=== PATIENT | female | born 1990 | race Caucasian/White ===

== ENCOUNTER 2025-08-06 19:21 | Emergency (ER) | payer OTHER, SELFPAY ==
[2025-08-06 19:28] VITALS: BP 134/97; PULSE 78; TEMP 36.9; O2SAT 98; BMI 27.4
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
--- NOTE | 2025-08-06 19:34 | PC.NURSE ---
Laceration above right eye, no bleeding at this time, eye swollen and bruised. Ice pack given.
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
--- OUTSIDE RECORDS SUMMARY | 2025-08-06 20:21 | XMS_ITS | Clinical Summary ---
Author Organization [facility] [employer] [facility] tem Address [id number] [address] [place] [address] Care Team Providers Care Designer And Patternmaker Name Role Phone Paulino Liang Primary Care Provider Allergies Active AllergyReactionsCriticalityNoted LqfcEwzrimtqKkfknmiruoa68/27/2020 Medications No known medications Active Problems ProblemNoted DateDiagnosed DateAttention deficit hyperactivity disorder (ADHD), predominantly hyperactive type09/26/2022Somatic dysfunction of thoracic region 09/26/2022 Encounters DateTypeDepartmentCare MqwzTdeddquqiav03/28/2025 7:54 PM EDT - 06/15/2025 8:14 PM EDTEmergency [facility] [address] [place] [address] Bert Zaragoza MD Acute otitis media, unspecified otitis media type (Primary Dx) Discharge Disposition: Home06/15/2025Travelfrom Last 3 Months Family History Medical HistoryRelationNameCommentsAutismBrotherNo Known ProblemsFatherNo Known ProblemsMotherRelationNameStatusCommentsBrotherAliveFatherAliveMotherAlive Social History Tobacco UseTypesPacks/DayYears UsedDateSmoking Tobacco: NeverSmokeless Tobacco: Never Tobacco Cessation:Counseling Given: Not Answered Alcohol UseStandard Drinks/WeekCommentsNot Currently0 (1 standard drink = 0.6 oz pure alcohol)RARELYPHQ-2AnswerDate RecordedTotal Dyhbs5904ChildcareAnswer Date XcurncgrUgoqxapjnRqodqjv47/10/2019EmploymentAnswerDate RecordedEmployment Finiafu7801/26/2019Hunger ScreeningAnswerDate RecordedWithin the past 12 months we worried whether our food would run out before we got money to buy more.Never True06/15/2025Within the past 12 months the food we bought just didn't last and we didn't have money to get more.Never True06/15/2025Purpose - LifeAnswerDate RecordedPurpose and direction in nylbSwgygbn14/17/2021CommentsNoSex and Gender InformationValueDate RecordedSex Assigned at BirthNot on fileLegal Sex Uctrzd6903/22/2015 12:12 PM EDTGender IdentityNot on fileSexual OrientationNot on file Last Filed Vital Signs Vital SignReadingTime TakenCommentsBlood Uogrqqwu041/9306/15/2025 8:14 PM EDT Thgxa630506/15/2025 8:14 PM APRTdnjlcvobpg13.6 ??C (97.9 ??F)06/15/2025 8:00 PM EDTRespiratory Mlro4003 8:14 PM EDTOxygen Kxfiprtqvg664%06/15/2025 8:14 PM EDTInhaled Oxygen Concentration--Lsygvy68.4 kg (153 lb)06/15/2025 8:00 PM EDT Frbhhp843.9 cm (5' 1 )06/15/2025 8:00 PM EDTBody Mass Index28.9106/15/2025 8:00 PM EDT Plan of Treatment Health MaintenanceDue DateLast DoneCommentsAdult BMI Follow Up Plan11/04/2009 DTaP,Tdap and Td Vaccines (1 - Tdap)11/04/2010Depression Nbgmlywzc48/03/2025 02/19/2024Influenza Jqwbkxd0804/19/2025dult BMI Jtyfyparv54 Tobacco Ajekohycc21Pap Smear/10/2023, 02/19/2024 Medical Devices Not on file Procedures Procedure NamePriorityDate/TimeAssociated DiagnosisCommentsHIGH RISK HPV W/SEAN Royjqkl9202/19/2024 4:55 AM EDT Cervical cancer screening from Last 3 Months or Most Recently Relevant to Health Maintenance Results * High risk HPV w/sean (02/19/2024 4:55 AM EDT)ComponentValueRef RangeTest MethodAnalysis TimePerformed AtPathologist SignatureHpv specimen typeThinPrep 02/21/2024 4:56 AM EDTFVENCOR HOSPITALHpv 16NegativeNegative^Negative 02/21/2024 12:18 PM [facility] LABHpv 18Negative Negative^Nsyctgjx68/05/2024 12:18 PM [facility] LABOther high risk hpvNegativeNegative^Nwipihko07/05/2024 12:18 PM [facility] LABComment: HPV types 31,33,35,39,45,52,56,58,59,66 and 68 DNA were undetectable. Specimen (Source)Anatomical Location / LateralityCollection Method / Volume Collection TimeReceived FvjpLDEST40/03/2024 4:55 AM EDT02/19/2024 4:57 AM EDT Narrative Authorizing ProviderResult TypeResult StatusStepjose Brice EMERY WHEEL MOLDER-CNPLAB BLOOD ORDERABLESFinal ResultPerforming OrganizationAddressCity/State/ZIP Code Phone Number [facility] [address] [facility] [place] [address] [facility] [address], [address] [place] [address] from Last 3 Months or Most Recently Relevant to Health Maintenance Insurance Care Teams Team MemberRelationshipSpecialtyStart DateEnd Date Paulino Liang DO [address] [place] [address] PCP - GeneralInternal Medicine09/26/22
[2025-08-06 20:39] LABS: Hematocrit 41.2 % (36.0-48.0); Hemoglobin 13.9 g/dL (12.0-16.0); Immature Granulocytes Abs Auto 0.05 10^3/uL (0.00-0.03); Immature Granulocytes Pct Auto 0.3 % (0.0-0.5); Lymphocytes Absolute Auto 1.7 10^3/uL (1.2-3.8); Mean Corpuscular HGB Conc 33.7 g/dL (29.9-35.2); Mean Corpuscular Hemoglobin 31.2 pg (26.7-34.0); Mean Corpuscular Volume 92.6 fL (81.0-99.0); Platelet Count 365 10^3/uL (150-450); Red Blood Count 4.45 10^6/uL (4.20-5.40); White Blood Count 14.8 10^3/uL (4.0-11.0)
[2025-08-06] MEDS: LIDOCAINE HCL 1% 100 MG/10 ML MDV INJ (20:57)
[2025-08-06 20:58] LABS: Lactate/Lactic Acid 1.4 mmol/L (0.4-2.0)
[2025-08-06] MEDS: DIPHTH,PERTUSS(ACELL),TET VAC 0.5 ML SYRINGE IM (20:58)
[2025-08-06 21:05] LABS: Alanine Aminotransferase 20 U/L (14-59); Albumin Globulin Ratio 1.3; Albumin Level 4.0 g/dL (3.4-5.0); Alkaline Phosphatase 66 U/L (46-116); Anion Gap 9.2; Aspartate Amino Transferase 17 U/L (15-37); Blood Urea Nitrogen 10.0 mg/dL (7.0-18.0); Calcium 9.2 mg/dL (8.5-10.1); Carbon Dioxide 27.5 mmol/L (21.0-32.0); Chloride 107 mmol/L (98-107); Estimated GFR (African America >60 (>=60 mL/min/1.73m^2); Estimated GFR (Non-African Ame >60 (>=60 mL/min/1.73m^2); Globulin 3.1 g/dL; Glucose 99 mg/dL (74-106); Potassium 3.7 mmol/L (3.5-5.1); Sodium 140 mmol/L (136-145); Total Protein 7.1 g/dL (6.4-8.2)
== END 2025-08-06 21:40 | disposition home or self-care (01) ==
PROVIDERS: Emergency Provider Internal Medicine
DX: S01.111A Laceration without foreign body of right eyelid and periocular area, initial encounter (principal); S16.1XXA Strain of muscle, fascia and tendon at neck level, initial encounter; S09.8XXA Other specified injuries of head, initial encounter; V49.49XA Driver injured in collision with other motor vehicles in traffic accident, initial encounter; Z23 Encounter for immunization
CPT/HCPCS: 12011; 36415; 70450; 70486; 72125; 76376; 80053; 81001; 83605; 85025; 90471; 90715; 99284